=== PATIENT | male | born 1970 | race Caucasian/White ===

== ENCOUNTER → 2017-04-13 | Day surgery (SDC) | payer BC ==
[~2017-04-13] MED LIST: BUPIVACAINE/EPINEPHRINE 0.25% 50 ML VIAL ONE; COMMODE 3-IN-11 MIS; DILA2TAB2 PO; HYDR2TAB PO; KETOROLAC TROMETHAMINE 30 MG/ML (IVP) VIAL IV PUSH ONE; LACTATED RINGER'S 1000 ML INJ 1,000 ML ONE; MEPERIDINE HCL 25 MG/ML VIAL ONE; MIDAZOLAM HCL 2 MG/2 ML VIAL ONE; ONDANSETRON HCL 4 MG/2 ML VIAL IV PUSH ONE; PERC5TAB12 PO; PROM12.54 PO; PROPOFOL 200 MG/20 ML AMP IV ONE; WALKER WHEELS/F1 MIS; ZOFR4TAB PO; ceFAZolin 2 GM PREMIX 50 ML ONE
--- NOTE | 2017-04-13 12:33 | TN ---
cc: BLANCA WALDRON M.D. DATE OF SURGERY 04/13/2017 PREOPERATIVE DIAGNOSIS Symptomatic bilateral inguinal hernias, left greater than right. POSTOPERATIVE DIAGNOSES 1. Symptomatic bilateral inguinal hernias, left greater than right. 2. Small bilateral direct inguinal hernias. 3. Large indirect left inguinal hernia. PROCEDURE PERFORMED Laparoscopic bilateral inguinal hernia repair with mesh. SURGEON Blanca Waldron MD ANESTHESIA General LMA. COMPLICATIONS None. INDICATIONS FOR PROCEDURE Mr. Gutierrez is a pleasant 46-year-old gentleman who noticed a symptomatic bulge in his left groin about 6 months ago. He was referred for surgical evaluation. The patient was seen and evaluated in the office recently. He was examined and found to have bilateral inguinal hernias, left greater than right. He is offered elective repair. Open laparoscopic techniques were discussed and he elected laparoscopic repair. DETAILS The patient was identified, brought to the operating room, placed supine on the operating table. After adequate general anesthesia was achieved with LMA, the anterior abdomen and groin was prepped and draped in standard surgical fashion. 0.25% Marcaine was injected into the skin and subcutaneous tissue in the infraumbilical space. Infraumbilical incision was made. Dissection was carried down to subcutaneous tissue to the anterior rectus fascia. The anterior rectus fascia was then incised vertically off the midline. Rectus muscle was then retracted laterally and in the preperitoneal space was entered with blunt dissection. Blunt dissecting balloon was inserted and insufflated with 30 pumps of air under direct vision using 0 degree laparoscope. A second balloon was then removed and balloon trocar inserted. The preperitoneal space was insufflated to 11 mmHg using CO2 gas. Next, two 5-mm trocars were placed in the lower midline under direct vision. Attention was first directed to the right side. Jorge's ligament and the pubic bone were identified. Dissection proceeded out laterally. A direct inguinal hernia was identified and photographed. Attention was then directed to the cord structures exiting the internal ring. Cord structures were carefully inspected and the peritoneum was seen to turn back before the internal ring. The peritoneum was teased off the cord structures several cm away from the internal ring. A posterior window was then made behind the cord structures. A piece of polypropylene mesh was inserted with a slit cut for the cord structures. Mesh was placed through the posterior window, then a slit reapproximated with the CapSure device. The mesh was then secured medially along Jorge's ligament and superior along the posterior abdominal wall fascia. Internal ring was appropriately tightened and the direct space was well covered by mesh with generous overlap in all directions. An onlay mesh was then placed over the first mesh in order to cover the slit. This mesh was secured medially and laterally. With this the indirect and direct spaces were well covered by mesh with generous overlap in all directions. Attention was now directed to the left side. On the left side again a small direct defect was identified and photographed. Dissection proceeded out laterally identifying the cord structures. Traveling with the cord structures was a fairly large peritoneal hernia sac. This was carefully dissected back out of the inguinal canal using a [id number] technique. A small rent was made in the sac and it was closed with a Vicryl Endoloop. The peritoneum was then dissected off the sac several cm away from the internal ring. A posterior window was then made behind the cord structures. A piece of polypropylene mesh was inserted with a slit cut for the cord structures. Mesh was placed through the posterior window and then the slit reapproximated using the CapSure tacking device. The internal ring was appropriately tightened. Mesh then secured medially along Jorge's ligament and superiorly along the posterior abdominal wall fascia. An onlay mesh was then placed over the first mesh in order to buttress the slit. This mesh was secured medially and laterally. With this the indirect and direct spaces were well covered by mesh with generous overlap. 0.25% Marcaine was injected in the preperitoneal space. Inferior border of the mesh was then held down, the peritoneum was held up and the preperitoneal space was desufflated and the peritoneum was found to overlie the mesh. All trocars were removed under direct vision. Anterior rectus fascia was repaired with a 0 Vicryl in [id number] fashion. The skin was closed 4-0 Vicryl. The patient tolerated the procedure well, was awakened and brought to Recovery in stable condition. MD JALEEL Payne/JESUS /12:16 PM /12:28 PM
== END | disposition home or self-care (01) ==
LOC: ESDC 08:29
PROVIDERS: ATTEND Surgery Trauma Surgery
DX: K40.20 Bilateral inguinal hernia, without obstruction or gangrene, not specified as recurrent (principal)
CPT/HCPCS: 00840; 49650; C1727; C1781; J0690; J1885; J2175; J2250; J2405; J3010; J7120